=== PATIENT | male | born 1995 | race Caucasian/White ===

== ENCOUNTER 2019-06-08 18:31 | Emergency (ER) | payer OTHER ==
[~2019-06-08] VITALS: Ht 177.8 cm; Wt 75.0 kg
[2019-06-08 18:58] VITALS: TEMP 97.2
[2019-06-08 19:57] VITALS: BP 127/85; PULSE 77
== END 2019-06-08 19:57 | disposition home or self-care (01) ==
LOC: COL.ER 18:31
DX: S05.01XA Injury of conjunctiva and corneal abrasion without foreign body, right eye, initial encounter (principal); X58.XXXA Exposure to other specified factors, initial encounter; Y92.59 Other trade areas as the place of occurrence of the external cause